=== PATIENT | female | born 1980 | race Caucasian/White ===

== ENCOUNTER → 2024-01-03 10:26 | Outpatient (REF) | payer OTHER, SELFPAY | LOC: HWRAD 10:26 | PROVIDERS: ATTENDING PHYSICIAN Physician Assistant Medical | DX: M54.50 Low back pain, unspecified (principal); Z87.442 Personal history of urinary calculi | CPT/HCPCS: 76770 ==

== ENCOUNTER 2024-10-23 09:06 | Emergency (ER) | payer OTHER, SELFPAY ==
[2024-10-23 09:07] VITALS: BP 152/103
[2024-10-23 10:59] VITALS: BMI 47.7
[2024-10-23 11:02] VITALS: BP 143/82
[2024-10-23 11:16] LABS: Urine Albumin 1+ (Neg - Trace); Urine Bilirubin Negative (Negative); Urine Character Slightly Cloudy (Clear); Urine Color Yellow; Urine Glucose Negative (Negative); Urine Ketone Negative (Negative); Urine Leukocyte Negative (Negative); Urine Nitrite Negative (Negative); Urine Occult Blood 1+ (Negative); Urine Urobilinogen 1+ (Neg - 1+)
[2024-10-23 11:26] LABS: Urine Mucus Few; Urine Squamous Cell >30 /LPF (Few)
[2024-10-23 11:32] LABS: Urine Bacteria Moderate (Negative)
[2024-10-23 11:58] LABS: HCG, Urine Qualitative Screen Negative
--- NOTE | 2024-10-23 13:00 | ED.GENMED ---
History of Present Illness
General
Chief Complaint: Back Pain
Source: patient
Exam Limitations: none
Time Seen by Provider: 10/23/24 09:30
History of Present Illness
History of Present Illness:
Patient with lower back pain that started yesterday. Positional in nature. Worse to the right lower side. Feels different her previous kidney stones. No abdominal pain fever chills urinary symptoms. No hematuria.
Past History
Past History
ED Past Medical History: Other (Kidney stones/migraines) and Other (S/P ablation for PAT)
ED Past Surgical History: Cardiac, and Gynecological
Social History
Tobacco: Non-smoker
Alcohol: None
Family History
Family History: Diabetes
Review of Systems
Review of Systems
All Other Systems: Not applicable
Constitutional: Denies fever or chills
: Reports no symptoms
Phy Exam
Physical Exam
Physical Exam:
GENERAL: Alert and oriented in no apparent distress
EYE: Orbits normal.
NECK: Supple, no significant adenopathy.
CARDIAC: Regular rate and rhythm without any obvious murmurs.
LUNGS: Clear breath sounds,normal
ABDOMEN: Soft, without focal tenderness or distention
NEUROLOGICAL: Alert and oriented , grossly non-focal. Ambulating well.
SKIN: Warm and dry, no rash or lesion, no discoloration, skin intact.
MUSCULOSKELETAL: No edema,no deformity.Good color. Some low back pain with straight leg raising. No lower extremity weakness. Gait normal. Increased pain with flexion at the hip.
PSYCH: Normal and appropriate interaction.
Course
Orders/Labs/Results
Orders:
Orders
10/23/24 09:44
Test Result ONCE
10/23/24 09:45
US Renal With Bladder Urgent
Comment: bladder not full ok, looking at ureteral jets
Reason For Exam: Right sided back pain. Evaluate for hydronephrosi
10/23/24 11:01
HCG, Urine Qualitative Screen Urgent
Date Specimen was Collected: 10/23/24
Time Specimen was Collected: 10:45
Urinalysis Reflex To Culture Urgent
Date Specimen was Collected: 10/23/24
Time Specimen was Collected: 10:45
Urine Microscopic Reflex Cult Urgent
Urine Culture Urgent
DENZEL Source: U
Specimen Description:
Date Specimen was Collected: 10/23/24
Time Specimen was Collected: 10:45
Abnormal Lab Results
10/23/24
11:01
Ur Occult Blood Reflex 1+ A
(Negative)
Urine RBC 7-10 A /HPF
(0-2)
Urine Bacteria (Reflex) Moderate A
(Negative)
Urine Albumin (Reflex) 1+ A
(Neg - Trace)
Vital Signs
Initial and Last Documented VS:
Initial Vital Signs
Temp Pulse Resp BP Pulse Ox
98.8 F 63 16 152/103 96
10/23/24 09:07 10/23/24 09:07 10/23/24 09:07 10/23/24 09:07 10/23/24 09:07
Last Documented Vital Signs
Temp Pulse Resp BP Pulse Ox
98.8 F 58 16 143/82 100
10/23/24 09:07 10/23/24 11:02 10/23/24 11:02 10/23/24 11:02 10/23/24 13:01
MDM/Problems Addressed
Differential Diagnosis Includes:
Symptoms most consistent with musculoskeletal back pain. However with history of kidney stones we will check for UTI and hydronephrosis.
*Radiology
Radiology exam reviewed: radiology read reviewed (Nonobstructing stones)
*Pulse Oximetry
SaO2: 100
Oxygen Mode of Delivery: Room air
Patient hypoxic: no
*Critical Care Note
Total Time (30-74mins, 75-104mins- exclusive of procedures): Not Applicable
Update Note
Update Note:
Clinically patient's symptoms are musculoskeletal. Nonobstructing stones. No signs of infection. Urinalysis contaminated but likely negative. Not describing UTI symptoms. Stable for discharge to follow-up
ED Attending Note
-
Portions of this chart may have been created with voice recognition software.� Occasional wrong word or��sound alike� substitutions may have occurred due to the inherent limitations of voice recognition software.
Discharge Plan
Departure
Patient Disposition: Home (Routine Discharge)
Date of Disposition: 10/23/24
Time of Disposition: 13:01
Patient with high blood pressure during this ER visit?: Yes
Discharge Problem:
Lower back pain, Nonobstructing kidney stones
Instructions: Low Back Pain (DC), BLOOD PRESSURE
Prescriptions:
New
cyclobenzaprine 10 mg tablet
10 mg PO TID PRN (Reason: muscle spasm) Qty: 14 0RF
No Action
fluoxetine 20 MG capsule
20 mg PO HS
amlodipine 5 MG tablet
5 mg PO DAILY
metformin 500 MG tablet extended release 24 hr
1,000 mg PO HS
fluoxetine [Prozac] 40 MG capsule
40 mg PO HS
oxybutynin chloride 5 MG tablet
5 mg PO BIDPRN PRN (Reason: bladder spasms)
melatonin 3 MG tablet
3 mg PO HSPRN PRN (Reason: sleep)
cephalexin 500 MG capsule
500 mg PO QID Qty: 20 0RF
Referrals:
Yojana aGrcia PA-C [Family Provider, Family Practice] - Follow up in 2-3 days
Activity Restrictions/Additional Instructions:
You can try the muscle relaxer for comfort
Tylenol for pain
Follow-up closely with your primary physician
The muscle relaxer prescription was sent to your pharmacy
Interventions
Interventions:
*Risk Screen - Suicide Last Done: 10/23/24 09:07
*General Assessment Last Done: 10/23/24 09:07
*Neglect/Abuse Screening Last Done: 10/23/24 09:07
*ED- Fall Risk Assessment Last Done: 10/23/24 10:59
*ED COVID-19 Vaccine History Last Done: 10/23/24 10:59
*Nursing Disposition Last Done: 10/23/24 13:22
ED-Musculoskeletal Assessment Last Done: 10/23/24 11:04
Discharge Date and Time
Discharge Date/Time: 10/23/24 13:23
Print Language: KOREAN
== END 2024-10-23 13:23 | disposition home or self-care (01) ==
LOC: EMR 09:06
PROVIDERS: EMERGENCY PHYSICIAN Emergency Medicine; FAMILY PHYSICIAN Physician Assistant Medical
DX: M54.50 Low back pain, unspecified (principal); N20.0 Calculus of kidney
CPT/HCPCS: 99284; 76770; 81003; 81015; 81025; 87086

== ENCOUNTER 2025-03-27 11:35 | Emergency (ER) | payer OTHER, SELFPAY ==
[2025-03-27 11:43] VITALS: BP 168/98
[2025-03-27 12:40] VITALS: BMI 46.4
--- NOTE | 2025-03-27 13:17 | ED.GENMED ---
History of Present Illness
<KWASI Sainz - Last Filed: 03/27/25 15:42>
General
Chief Complaint: Musculo-Skeletal Complaint
Source: patient
Exam Limitations: none
Time Seen by Provider: 03/27/25 12:47
Nursing documentation reviewed up to this point in time: agreed with
History of Present Illness
History of Present Illness:
44-year-old female presents to the ER for evaluation of left hip pain. Patient fell down her steps this morning. She landed on her left hip. She denies hitting her head. She has been able to walk but complains of soreness to her left hip. She
reports she has had urinary symptoms since January has been on her third antibiotic. She is presently on Bactrim. She reports because of that she does not feel like she is feeling well and that she is not sure that because she is not feeling well
this was the cause of her falling down the steps. She complains of lower abdominal pressure all the time worse with urination and does have a sensation of burning with urination as well she is nauseous now she denies any fever chills.
She accessed her portal while she was here and her previous urine culture stated she had Klebsiella. She was on Cipro previously and on Bactrim both of which are sensitive.
Past History
<KWASI Sainz - Last Filed: 03/27/25 15:42>
Past History
ED Past Medical History: Other (Kidney stones/migraines) and Other (S/P ablation for PAT)
ED Past Surgical History: Cardiac, and Gynecological
Social History
Tobacco: Non-smoker
Alcohol: None
Family History
Family History: Diabetes
Phy Exam
<KWASI Sainz - Last Filed: 03/27/25 15:42>
General Physical Exam
General Presentation: no apparent distress
General age: appears stated age
General Skin: warm and dry
General Habitus: normal
General Mental: alert
General Hydration: appears well hydrated
Gastrointestinal Exam
Gastrointestinal Exam: soft and other (Lower abdominal tenderness)
Neurological Exam
Neurological Exam: alert and oriented x3
Musculoskeletal Exam
Musculoskeletal Exam: other (mild tender to left lateral hip full rom )
Skin Exam
Skin Exam: normal color and warm/dry
Psychiatric Exam
Psychiatric Exam: normal mood/affect
Course
<KWASI Sainz - Last Filed: 03/27/25 15:42>
Orders/Labs/Results
Orders:
Orders
03/27/25 13:00
Hip, Left 2-3 Views [CR Hip - LT w/wo Pel 2-3 Vw*] Urgent
Comment:
Reason For Exam: trauma
Include a pelvis x-ray?: Yes
03/27/25 13:28
Test Result ONCE
03/27/25 13:47
Complete Blood Count/With Diff Urgent
Comprehensive Metabolic Panel Urgent
HCG, Serum Qualitative Screen Urgent
03/27/25 14:16
Urinalysis Reflex To Culture Urgent
Date Specimen was Collected: 03/27/25
Time Specimen was Collected: 14:15
Urine Microscopic Reflex Cult Urgent
Urine Culture Urgent
DENZEL Source: U
Specimen Description:
Date Specimen was Collected: 03/27/25
Time Specimen was Collected: 14:15
03/27/25 15:05
CT Abd/pelvis W Iv Cont Urgent
Comment:
Reason For Exam: lower abd pain
Abnormal Lab Results
03/27/25 03/27/25
13:47 14:16
Hgb 9.7 L g/dL
(12.0-16.0)
Hct 33.6 L %
(37.0-47.0)
MCV 67.2 L fL
(81.0-99.0)
MCH 19.4 L pg
(27.0-31.0)
MCHC 28.9 L g/dL
(33.0-37.0)
RDW 18.8 H %
(11.5-14.5)
Neutrophils % 76.4 H %
(42.2-75.2)
Lymphocytes % 16.7 L %
(20.5-51.1)
Urine Ketones 3+ A
(Negative)
Urine Bacteria (Reflex) Many A
(Negative)
Urine Albumin (Reflex) 1+ A
(Neg - Trace)
03/27/25 13:47
03/27/25 13:47
Vital Signs
Initial and Last Documented VS:
Initial Vital Signs
Temp Pulse Resp BP Pulse Ox
97.8 F 89 18 168/98 97
03/27/25 11:43 03/27/25 11:43 03/27/25 11:43 03/27/25 11:43 03/27/25 11:43
Last Documented Vital Signs
Temp Pulse Resp BP Pulse Ox
97.8 F 80 18 121/72 100
03/27/25 11:43 03/27/25 15:32 03/27/25 15:32 03/27/25 15:32 03/27/25 15:32
<Henrique Thomas PA-C - Last Filed: 03/27/25 17:49>
Orders/Labs/Results
Orders:
Orders
03/27/25 13:00
Hip, Left 2-3 Views [CR Hip - LT w/wo Pel 2-3 Vw*] Urgent
Comment:
Reason For Exam: trauma
Include a pelvis x-ray?: Yes
03/27/25 13:28
Test Result ONCE
03/27/25 13:47
Complete Blood Count/With Diff Urgent
Comprehensive Metabolic Panel Urgent
HCG, Serum Qualitative Screen Urgent
03/27/25 14:16
Urinalysis Reflex To Culture Urgent
Date Specimen was Collected: 03/27/25
Time Specimen was Collected: 14:15
Urine Microscopic Reflex Cult Urgent
Urine Culture Urgent
DENZEL Source: U
Specimen Description:
Date Specimen was Collected: 03/27/25
Time Specimen was Collected: 14:15
03/27/25 15:05
CT Abd/pelvis W Iv Cont Urgent
Comment:
Reason For Exam: lower abd pain
Abnormal Lab Results
03/27/25 03/27/25
13:47 14:16
Hgb 9.7 L g/dL
(12.0-16.0)
Hct 33.6 L %
(37.0-47.0)
MCV 67.2 L fL
(81.0-99.0)
MCH 19.4 L pg
(27.0-31.0)
MCHC 28.9 L g/dL
(33.0-37.0)
RDW 18.8 H %
(11.5-14.5)
Neutrophils % 76.4 H %
(42.2-75.2)
Lymphocytes % 16.7 L %
(20.5-51.1)
Urine Ketones 3+ A
(Negative)
Urine Bacteria (Reflex) Many A
(Negative)
Urine Albumin (Reflex) 1+ A
(Neg - Trace)
03/27/25 13:47
03/27/25 13:47
Vital Signs
Initial and Last Documented VS:
Initial Vital Signs
Temp Pulse Resp BP Pulse Ox
97.8 F 89 18 168/98 97
03/27/25 11:43 03/27/25 11:43 03/27/25 11:43 03/27/25 11:43 03/27/25 11:43
Last Documented Vital Signs
Temp Pulse Resp BP Pulse Ox
97.8 F 80 18 121/72 100
03/27/25 11:43 03/27/25 15:32 03/27/25 15:32 03/27/25 15:32 03/27/25 15:32
<KWASI Sainz - Last Filed: 03/27/25 15:42>
MDM/Problems Addressed
Differential Diagnosis Includes:
Not limited to contusion versus pelvic versus fracture less likely, colitis UTI diverticulitis
MDM/Problems Addressed:
Patient is a 44-year-old female presents today for evaluation. Patient fell down the steps today injuring her left hip area. She denies hitting her head. Steps are wooden. She feels that she may fall because she was not feeling well, dizzy. She
has had a UTI an check labs and d/UTI symptoms since January and on her third antibiotic currently taking Bactrim she feels nauseous now. She does complain of constant abdominal pressure in addition to obtaining an x-ray of her left hip will chekc
labs and ct abd, Pt has lower abd tenderness.
1540: care of pt at this time transferred to SYDNEE Vaughn.
<Henrique Thomas PA-C - Last Filed: 03/27/25 17:49>
MDM/Problems Addressed
MDM/Problems Addressed:
Patient is a 44-year-old female presents today for evaluation. Patient fell down the steps today injuring her left hip area. She denies hitting her head. Steps are wooden. She feels that she may fall because she was not feeling well, dizzy. She
has had a UTI an check labs and d/UTI symptoms since January and on her third antibiotic currently taking Bactrim she feels nauseous now. She does complain of constant abdominal pressure in addition to obtaining an x-ray of her left hip will chekc
labs and ct abd, Pt has lower abd tenderness.
1540: care of pt at this time transferred to SYDNEE Anderson.
Addendum and sign out.
Care signed out to me by outgoing provider.
Patient is a 44-year-old female with past medical history of prior gastric bypass here today for evaluation after she sustained a fall earlier today. She became slightly dizzy and fell down several steps landing on her left hip. She has since had
left hip pain. No head trauma. She also reports ongoing lower abdominal pain and urinary tract symptoms and has been on multiple antibiotics currently on Bactrim. She is not sure if this is the cause of her symptoms. No fevers. Overall, patient
appears well. At the time of signout patient pending a CT scan of the abdomen and pelvis with IV contrast. I did review the patient's additional testing and she is noted to have anemia with hemoglobin of 9.7 which is grossly consistent with the
patient's baseline. Remainder of her laboratory testing is grossly normal. Her urine does reveal ketones and I suspect she likely is dehydrated which may be causing her symptoms. Her urine dip does have bacteria but she also has squamous
epithelium. I recommend continuing the Bactrim antibiotic. Her left hip x-ray is negative. Her abdomen/pelvis CT is negative as well. On my evaluation the patient appears well and comfortable. She does not appear to be in any discomfort. On
evaluation of the abdomen I am unable to appreciate any tenderness. There is also no tenderness noted along the left hip. There is no skin changes noted. Patient able to ambulate appropriately without difficulty. I suspect a soft tissue injury.
I recommend supportive measures and RICE. Recommend follow-up with her doctor. All questions answered. Stable for discharge.
<KWASI Sainz - Last Filed: 03/27/25 15:42>
*Pulse Oximetry
SaO2: 97
Oxygen Mode of Delivery: Room air
<Henrique Thomas PA-C - Last Filed: 03/27/25 17:49>
*Pulse Oximetry
Patient hypoxic: no
*Critical Care Note
Total Time (30-74mins, 75-104mins- exclusive of procedures): Not Applicable
ED Attending Note
<KWASI Sainz - Last Filed: 03/27/25 15:42>
-
Portions of this chart may have been created with voice recognition software.� Occasional wrong word or��sound alike� substitutions may have occurred due to the inherent limitations of voice recognition software.
Discharge Plan
Departure
Patient Disposition: Home (Routine Discharge)
Date of Disposition: 03/27/25
Time of Disposition: 16:41
Patient with high blood pressure during this ER visit?: Yes
Condition: Fair
Covid-19: Not Applicable
Discharge Problem:
Fall, Acute pain of left hip, Urinary tract infection
Instructions: Hip pain in adults, Preventing falls - ED (DC)
Prescriptions:
No Action
fluoxetine 20 MG capsule
20 mg PO HS
amlodipine 5 MG tablet
5 mg PO DAILY
metformin 500 MG tablet extended release 24 hr
1,000 mg PO HS
fluoxetine [Prozac] 40 MG capsule
40 mg PO HS
oxybutynin chloride 5 MG tablet
5 mg PO BIDPRN PRN (Reason: bladder spasms)
melatonin 3 MG tablet
3 mg PO HSPRN PRN (Reason: sleep)
cephalexin 500 MG capsule
500 mg PO QID Qty: 20 0RF
cyclobenzaprine 10 mg tablet
10 mg PO TID PRN (Reason: muscle spasm) Qty: 14 0RF
Referrals:
Yojana Garcia CRNP [Family Provider, General] - Follow up in 2-3 days
Activity Restrictions/Additional Instructions:
Follow-up with your doctor for further testing and evaluation.
Return for any new, worsening, or concerning symptoms.
Interventions
Interventions:
*Risk Screen - Suicide Last Done: 03/27/25 11:42
*General Assessment Last Done: 03/27/25 11:46
*Neglect/Abuse Screening Last Done: 03/27/25 11:46
*ED COVID-19 Vaccine History Last Done: 03/27/25 11:46
*ED Influenza Vaccine History Last Done: 03/27/25 11:46
[facility] Fall Risk Assessment Tool Last Done: 03/27/25 12:40
*Nursing Disposition Last Done: 03/27/25 16:49
ED-Musculoskeletal Assessment Last Done: 03/27/25 12:40
Discharge Date and Time
Discharge Date/Time: 03/27/25 16:49
Print Language: MONGOLIAN
[2025-03-27 14:13] LABS: Hematocrit 33.6 % (37.0-47.0); Hemoglobin 9.7 g/dL (12.0-16.0); Mean Corp Hgb Conc. 28.9 g/dL (33.0-37.0); Mean Corpuscular Volume 67.2 fL (81.0-99.0); Nucleated Red Blood Cells % 0 %; Platelet Count 354 10^3/uL (130-400); Red Cell Dist. Width 18.8 % (11.5-14.5)
[2025-03-27 14:27] LABS: Urine Character Clear (Clear)
[2025-03-27 14:29] LABS: HCG, Serum Qualitative Screen Negative
[2025-03-27 14:30] LABS: ALT (SGPT) 23 U/L (0-35); AST (SGOT) 27 U/L (14-36); Albumin 4.3 g/dl (3.5-5.0); Alkaline Phosphatase 103 U/L (38-126); Blood Urea Nitrogen 10 mg/dl (7-17); Calcium 9.0 mg/dl (8.4-10.2); Carbon Dioxide 25 mmol/L (22-30); Chloride 105 mmol/L (98-107); Estimated Creatinine Clearance > 125 ml/min; Glucose 92 mg/dl (70-99); Potassium 4.4 mmol/L (3.5-5.1); Sodium 137 mmol/L (135-145); Total Protein 7.1 g/dl (6.3-8.2); eGFR > 60.00
[2025-03-27 14:47] LABS: Urine Red Blood Cell 0-2 /HPF (0-2); Urine Squamous Cell 16-20 /LPF (Few)
[2025-03-27 14:48] LABS: Anisocytosis 1+; Normal RBC Morphology No
[2025-03-27 14:49] LABS: Hypochromasia 2+; Macrocytosis FEW; Ovalocytes Slight; Polychromasia Slight
[2025-03-27 15:32] VITALS: BP 121/72
== END 2025-03-27 16:49 | disposition home or self-care (01) ==
LOC: EMR 11:35
PROVIDERS: Nurse Practitioner; EMERGENCY PHYSICIAN Emergency Medicine; FAMILY PHYSICIAN Nurse Practitioner Adult Health
DX: M25.552 Pain in left hip (principal); W10.9XXA Fall (on) (from) unspecified stairs and steps, initial encounter; N39.0 Urinary tract infection, site not specified; Z79.2 Long term (current) use of antibiotics
CPT/HCPCS: 99284; 73502; 74177; 80053; 81003; 81015; 84703; 85025; 87086; Q9967